=== PATIENT | female | born 1935 | race Caucasian/White ===

== ENCOUNTER → 2016-08-20 | Outpatient (CLI) | payer OTHER | LOC: BMCIMAGING 09:20 | PROVIDERS: ATTEND Internal Medicine | DX: Z12.31 Encounter for screening mammogram for malignant neoplasm of breast (principal); R92.8 Other abnormal and inconclusive findings on diagnostic imaging of breast | CPT/HCPCS: G0202 ==

== ENCOUNTER → 2016-08-24 | Outpatient (CLI) | payer OTHER | LOC: BMCIMAGING 10:13 | PROVIDERS: ATTEND Internal Medicine | DX: N63 Unspecified lump in breast (principal) | CPT/HCPCS: G0206 ==